=== PATIENT | female | born 1990 | race Caucasian/White ===

== ENCOUNTER 2022-08-18 20:37 | Emergency (ER) | payer OTHER, SELFPAY ==
[2022-08-18 20:50] VITALS: BP 140/96; PULSE 87; RESP 18; TEMP 36.7; O2SAT 99
--- NOTE | 2022-08-18 22:21 | ED.SKABFB1 ---
HPI - Skin/Abscess/Foreign Bdy General Chief complaint: Skin/Abscess/Foreign Body Stated complaint: POSS INFECTED BOIL Time Seen by Provider: 08/18/22 22:14 Source: patient Mode of arrival: walk-in Limitations: no limitations History of Present Illness HPI narrative: abscess left thigh. Started clindamycin 2-3 days ago. Has open central area that is draining. erythema about the wound is spreading. she does not feel bad. No fever, chills or nausea Related Data Home Medications Medication Instructions Recorded Confirmed buspirone 7.5 mg tablet mg 08/18/22 escitalopram oxalate 10 mg tablet mg 08/18/22 gabapentin 100 mg capsule mg 08/18/22 guanfacine 1 mg tablet,extended 1 mg PO DAILY 08/18/22 08/18/22 release 24 hr (Intuniv ER) mirtazapine 45 mg tablet mg 08/18/22 quetiapine 100 mg tablet mg 08/18/22 quetiapine 25 mg tablet mg 08/18/22 quetiapine 300 mg tablet mg 08/18/22 ropinirole 2 mg tablet mg 08/18/22 Allergies Allergy/AdvReac Type Severity Reaction Status Date / Time Sulfa (Sulfonamide Allergy Unknown Verified 08/18/22 20:54 Antibiotics) Review of Systems ROS Status of ROS 10 or more systems reviewed and unremarkable except as noted in history and below [facility] Social History Smoking status: Current every day smoker Exam Constitutional Vital Signs - 24 hr 08/18/22 20:50 Temperature 98.0 F Pulse Rate [Monitor] 87 Respiratory Rate 18 Blood Pressure [Right Arm] 140/96 H Pulse Oximetry 99 Oxygen Delivery Method Room Air [facility] Common normals: normocephalic and head/scalp atraumatic Eye Common normals: EOMs intact bilaterally, conjunctivae normal and no scleral icterus Neck & C-Spine Common normals: full ROM Chest Common normals: inspection of chest normal Respiratory Common normals: no use of accessory muscles and clear to auscultation bilaterally Cardio Common normals: regular rhythm and S1 normal heart sound GI Common normals: Normal to inspection, nondistended, normoactive bowel sounds present Back & Pelvis Common normals: no CVA tenderness Extremity Other: erythema left media thigh. 12cm. open lesion with evidence of drainage. No fluctuance and minimal induration Neuro Common normals: oriented x3 and CN's II-XII intact bilaterally Psych Appearance: grossly normal Course Vital Signs Vital signs: Vital Signs Temperature 98.0 F 08/18/22 20:50 Pulse Rate 87 08/18/22 20:50 Respiratory Rate 18 08/18/22 20:50 Blood Pressure 140/96 H 08/18/22 20:50 Pulse Oximetry 99 08/18/22 20:50 Oxygen Delivery Method Room Air 08/18/22 20:50 Temperature 98.0 F 08/18/22 20:50 Pulse Rate 87 08/18/22 20:50 Respiratory Rate 18 08/18/22 20:50 Blood Pressure 140/96 H 08/18/22 20:50 Pulse Oximetry 99 08/18/22 20:50 Oxygen Delivery Method Room Air 08/18/22 20:50 MDM - Skin/Abscess/Foreign Bdy MDM Narrative Medical decision making narrative: patient has cellulitis left medial thigh and a central area/wound that has been draining. Site is only mildly tender she is on clindamycin but the area of erythema continues to spread on her thigh. She has mild pain and doesn't feel ill. Lab did attempt to draw blood but the patient only allowed them to try once. She has past history of IVDA and did not want lab to try again. Patient informed without lab work she will require close follow up. Will have her continue her clindamycin and will add Doxycycline. She is advised to have her wound rechecked tomorrow. She is given dose of doxycycline now and one for the AM Discharge Plan Discharge Chief Complaint: Skin/Abscess/Foreign Body Clinical Impression: Cellulitis Patient Disposition: Home, Self-Care Mode of Transportation: Private Vehicle Prescriptions / Home Meds: No Action gabapentin 100 mg capsule escitalopram oxalate 10 mg tablet quetiapine 25 mg tablet quetiapine 300 mg tablet quetiapine 100 mg tablet ropinirole 2 mg tablet buspirone 7.5 mg tablet mirtazapine 45 mg tablet guanfacine [Intuniv ER] 1 mg tablet extended release 24 hr 1 mg PO DAILY Print Language: Malay Instructions: Cellulitis (ED) Additional Instructions: Vibramycin twice daily for 10 days. One pill sent home with you for the morning. Stand Alone Forms: Portal Instructions Referrals: Physician,Non-Staff, MD [Primary Care Provider] - 1 week Follow Up Appointments: have wound rechecked tomorrow by your doctor.
--- NOTE | 2022-08-18 22:33 | PC.NURSE ---
pt refused lab draw at this time, states she is an iv drug user
--- NOTE | 2022-08-18 23:25 | PC.NURSE ---
pt given doxycycline, one here and one to go, per dr bowman. chart would not let me get back into [facility] after discharge saved. pt ambulated off unit in stable condition.
== END 2022-08-18 23:26 | disposition home or self-care (01) ==
PROVIDERS: Emergency Provider Internal Medicine
DX: L03.116 Cellulitis of left lower limb (principal); Z79.899 Other long term (current) drug therapy
CPT/HCPCS: 80048; 85025; 85652; 86140; 99283

== ENCOUNTER 2024-07-07 14:56 | Outpatient (OUT) | payer OTHER, SELFPAY ==
[2024-07-07 15:27] LABS: Basophils Absolute Auto 0.1 10^3/uL (0.0-0.1); Basophils Percent Auto 1.1 % (0.2-2.0); Eosinophils Absolute Auto 0.1 10^3/uL (0.0-0.7); Eosinophils Percent Auto 1.5 % (0.9-7.0); Hematocrit 44.3 % (36.0-48.0); Hemoglobin 14.3 g/dL (12.0-16.0); Immature Granulocytes Abs Auto 0.02 10^3/uL (0.00-0.03); Immature Granulocytes Pct Auto 0.3 % (0.0-0.5); Lymphocytes Absolute Auto 2.3 10^3/uL (1.2-3.8); Lymphocytes Percent Auto 31.7 % (20.5-60.0); Mean Corpuscular HGB Conc 32.3 g/dL (29.9-35.2); Mean Corpuscular Hemoglobin 27.8 pg (26.7-34.0); Mean Corpuscular Volume 86.2 fL (81.0-99.0); Mean Platelet Volume 11.1 fL (9.5-13.5); Monocytes Absolute Auto 0.5 10^3/uL (0.3-0.8); Monocytes Percent Auto 6.6 % (1.7-12.0); Neutrophils Absolute Auto 4.2 10^3/uL (1.4-6.5); Neutrophils Percent Auto 58.8 % (43.0-75.0); Platelet Count 249 10^3/uL (150-450); Red Blood Count 5.14 10^6/uL (4.20-5.40); Red Cell Distribution Width 13.2 % (11.0-15.0); White Blood Count 7.2 10^3/uL (4.0-11.0)
[2024-07-07 15:48] LABS: Alanine Aminotransferase 34 U/L (14-59); Albumin Globulin Ratio 0.8; Albumin Level 3.5 g/dL (3.4-5.0); Alkaline Phosphatase 82 U/L (46-116); Anion Gap 15.9; Aspartate Amino Transferase 30 U/L (15-37); BUN Creatinine Ratio 12.8; Bilirubin Total 0.2 mg/dL (0.2-1.0); Calcium 9.3 mg/dL (8.5-10.1); Carbon Dioxide 23.4 mmol/L (21.0-32.0); Chloride 105 mmol/L (98-107); Estimated GFR (African America >60 (>=60 mL/min/1.73m^2); Estimated GFR (Non-African Ame >60 (>=60 mL/min/1.73m^2); Globulin 4.2 g/dL; Glucose 115 mg/dL (74-106); Potassium 4.3 mmol/L (3.5-5.1); Sodium 140 mmol/L (136-145); Total Protein 7.7 g/dL (6.4-8.2)
[2024-07-08 05:10] LABS: HIV Ab/p24 Ag Screen Non Reactive (Non Reactive)
[2024-07-08 07:07] LABS: HBsAg Screen Negative (Negative); Hepatitis B Surf Ab Quant <3.5 mIU/mL (Immunity>10)
[2024-07-14 13:08] LABS: HCV Ab Reactive (Non Reactive)
== END 2024-07-07 14:57 | disposition home or self-care (01) ==
LOC: LAB 14:58
PROVIDERS: Visit Provider Nurse Practitioner Primary Care
DX: F11.20 Opioid dependence, uncomplicated (principal)
CPT/HCPCS: 36415; 80053; 85025; 86317; 86803; 87340; 87389; 87522